=== PATIENT | female | born 1940 | race Caucasian/White ===

== ENCOUNTER → 2017-08-01 | Outpatient (CLI) | payer MEDICARE | END | disposition home or self-care (01) | LOC: CVU 12:34 | PROVIDERS: ATTEND Internal Medicine Cardiovascular Disease | DX: I08.0 Rheumatic disorders of both mitral and aortic valves (principal); Z85.3 Personal history of malignant neoplasm of breast; Z90.13 Acquired absence of bilateral breasts and nipples | CPT/HCPCS: 93306 ==

== ENCOUNTER 2019-06-14 15:02 | Emergency (ER) | payer MEDICARE ==
[~2019-06-14] VITALS: Ht 162.6 cm; Wt 62.6 kg
--- NOTE | 2019-06-14 15:05 | NUR ---
1456 code neuro p[address]. [address] Rosen[address] paged. 1501 Dr. Rosenberg called back. 1502 Patient arrived in dept.
[2019-06-14] MEDS ORDERED: ALTEPLASE 1 MG/ML, 100ML ONE (15:17)
--- NOTE | 2019-06-14 15:20 | NUR ---
NUEROLOGIST HUGO AT BEDSIDE VIA [place].
[2019-06-14] MEDS ORDERED: OMNIPAQUE 350 MG/ML, 100ML BOTTLE ONE (15:24)
--- NOTE | 2019-06-14 15:35 | NUR ---
TPA BOLUS GIVEN PER VERBAL ORDER BY NEURO HUGO AND DRIP STARTED AT 1535.
[2019-06-14 15:38] LABS: INTERNATIONAL NORMALIZED RATIO 1.02 (0.93-1.1); PROTHROMBIN TIME 10.8 Seconds (9.6-11.5)
--- NOTE | 2019-06-14 15:53 | NUR ---
PT BIB [facility] FOR TRANSIENT RIGHT SIDED DEFICITS AND EPXRESSIVE APHASIA. PT WAS LAST SEEN NORMAL AT 1420. PT ARRIVED AT 1455 AND WAS IMMEDIATELY TAKEN TO CT SCAN WHERE PANCHO GIFFORD ASSESSED PT. UNABLE TO ASSESS ORIENTATION D/T MUTE/SEVER APHASIA. PT SEEMS SOMEWHAT CONFUSED BUT IS MOSTLY FOLLOWING COMMANDS APPROPRIATELY IF ABLE. PERRLA. PT MOVING ALL EXTREMITIES. 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 SLIGHT ASSUMED WEAKNESS IN LEGS D/T MILD DRIFT. RIGHT SIDED FACIAL DROOP NOTED. PT ON CONT BP, CARDIAC AND O2 MONITORS.
[2019-06-14 15:55] LABS: BASOPHILS # (AUTO) 0.05 x10^3/uL (0-0.1); BASOPHILS % (AUTO) 1 % (0-1); EOSINOPHILS # (AUTO) 0.18 x10^3/uL (0-0.4); EOSINOPHILS % (AUTO) 3 % (1-7); LYMPHOCYTES # (AUTO) 2.17 x10^3/uL (1-3.4); LYMPHOCYTES % (AUTO) 32 % (22-44); MD NO; MEAN CORPUSCULAR HEMOGLOBIN 29.5 pg (27.0-34.8); MEAN CORPUSCULAR HGB CONC 33.3 g/dL (32.4-35.8); MEAN CORPUSCULAR VOLUME 88.4 fL (80-100); MEAN PLATELET VOLUME 8.9 fL (7.4-10.4); MONOCYTES # (AUTO) 0.48 x10^3/uL (0.2-0.8); MONOCYTES % (AUTO) 7 % (2-9); NEUTROPHILS # (AUTO) 3.83 x10^3/uL (1.8-6.8); NEUTROPHILS % (AUTO) 57 % (42-75); PLATELET COUNT 218 x10^3/uL (130-400); RED BLOOD COUNT 3.76 x10^6/uL (3.82-5.3); RED CELL DISTRIBUTION WIDTH 14.2 % (9.6-15.2)
[2019-06-14] MEDS ORDERED: ALTEPLASE 6 MG in SYRINGE 1 EA IVPush ONE (16:00)
[2019-06-14] MEDS ORDERED: ALTEPLASE 51 MG in VIAL 1 EACH IV ONE (16:00)
--- NOTE | 2019-06-14 16:21 | NUR ---
ATTEMPTED TO CALL [facility] X 2 TO GIVE REPORT. NO ANSWER.
--- NOTE | 2019-06-14 16:31 | NUR ---
REPORT TO ERLIN PAZ AT [facility].
--- NOTE | 2019-06-14 16:31 | NUR ---
PT ATEMPTING TO SAY SOME WORDS, REQUESTED "MY GLASSES". SPEECH IS GARBLED. PT FOLLOWING MOST COMMANDS. PERRLA. 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 UNABLE TO ASSESS NUERO SENSATION. PT ON CONT BP, CARDIAC AND O2 MONITORS. WILL CONT TO MONITOR PT.
--- NOTE | 2019-06-14 16:32 | NUR ---
THROUGHPUT: PT ACCEPTED BY [facility] ([facility]) & DR DARBY, AWAITING [facility]SPORT FOR tPA MANAGEMENT DURING TRANSPORT, DR GIFFORD AWARE.
[2019-06-14 16:35] VITALS: BP 130/50
--- NOTE | 2019-06-14 16:44 | NUR ---
REPORT TO ERLIN COON ON [facility] FOR TRANSPORT.
== END 2019-06-14 17:23 | disposition short-term general hospital (02) ==
LOC: ED 15:16 → UNDOADMIN 15:31 → EDIP 15:31 → ED 17:23
DX: I63.9 Cerebral infarction, unspecified (principal); R29.709 NIHSS score 9
CPT/HCPCS: 36415; 37195; 70450; 70496; 70498; 80047; 85025; 85610; 85730; 93005; 99291; J2997; Q9967

== ENCOUNTER → 2020-06-27 | Outpatient (CLI) | payer MEDICARE ==
[~2020-06-27] MED LIST: ALPR0.5T7 PO; ASPI81TA45 PO; ATEN25TA PO; ATOR40TA78 PO; CHOL10003 PO; HYDR25TA6 PO; ICOS1CAP PO; OMNIPAQUE 350 MG/ML, 100ML BOTTLE ONE; POTA20PA25 PO; SPIR25TA5 PO
== END | disposition home or self-care (01) ==
LOC: CFH 08:04
PROVIDERS: ATTEND Internal Medicine
DX: N28.1 Cyst of kidney, acquired (principal); D49.0 Neoplasm of unspecified behavior of digestive system; M51.37 Other intervertebral disc degeneration, lumbosacral region
CPT/HCPCS: 74177; Q9967

== ENCOUNTER 2020-11-18 11:37 | Outpatient (CLI) | payer MEDICARE ==
[~2020-11-18 11:37] MED LIST changes: -OMNIPAQUE 350 MG/ML, 100ML BOTTLE ONE
[2020-11-18 12:02] LABS: BASOPHILS % (AUTO) 1 % (0-1); EOSINOPHILS % (AUTO) 5 % (1-7); LYMPHOCYTES % (AUTO) 25 % (22-44); MEAN CORPUSCULAR HEMOGLOBIN 30.2 pg (27.0-34.8); MEAN CORPUSCULAR HGB CONC 33.6 g/dL (32.4-35.8); MEAN PLATELET VOLUME 8.2 fL (7.4-10.4); MONOCYTES % (AUTO) 8 % (2-9); NEUTROPHILS % (AUTO) 61 % (42-75); PLATELET COUNT 217 x10^3/uL (130-400); RED BLOOD COUNT 3.68 x10^6/uL (3.82-5.3); RED CELL DISTRIBUTION WIDTH 13.9 % (9.6-15.2)
[2020-11-18 12:19] LABS: ALANINE AMINOTRANSFERASE 23 U/L (12-78); ALBUMIN 3.7 g/dL (3.4-5.0); ANION GAP 7 mmol/L (5-15); CALCIUM 9.3 mg/dL (8.5-10.1); CHLORIDE 112 mmol/L (98-107); CREATININE 1.04 mg/dL (0.55-1.02)
[2020-11-18 12:27] LABS: ALKALINE PHOSPHATASE 95 U/L (45-117); BILIRUBIN,TOTAL 0.5 mg/dL (0.2-1.0); CHOL/HDL RATIO 2.9; CHOLESTEROL, TOTAL 141 mg/dL (140-239); HDL CHOL % 34 % (28-40); HDL CHOLESTEROL (DIRECT) 48 mg/dL (40-60); LDL CHOLESTEROL,CALCULATED 70 mg/dL (54-169); LDL/HDL RATIO 1.5 (0.5-3.0); TOTAL PROTEIN 7.3 g/dL (6.4-8.2); TRIGLYCERIDES 115 mg/dL (50-200); VLDL CHOLESTEROL 23 mg/dL (0-25)
== END 2020-11-18 23:59 | disposition home or self-care (01) ==
LOC: LAB 11:37
PROVIDERS: ATTEND Internal Medicine Cardiovascular Disease
DX: I12.9 Hypertensive chronic kidney disease with stage 1 through stage 4 chronic kidney disease, or unspecified chronic kidney disease (principal); N18.9 Chronic kidney disease, unspecified; D49.0 Neoplasm of unspecified behavior of digestive system; E78.00 Pure hypercholesterolemia, unspecified; D64.9 Anemia, unspecified; R00.2 Palpitations; I65.29 Occlusion and stenosis of unspecified carotid artery; I63.9 Cerebral infarction, unspecified; I35.8 Other nonrheumatic aortic valve disorders; I34.0 Nonrheumatic mitral (valve) insufficiency; D50.0 Iron deficiency anemia secondary to blood loss (chronic); E87.1 Hypo-osmolality and hyponatremia
CPT/HCPCS: 36415; 80053; 80061; 84436; 84443; 84481; 85025